=== PATIENT | female | born 1990 | race Caucasian/White ===

== ENCOUNTER 2019-06-07 14:34 | Emergency (ER) | payer SELFPAY ==
[~2019-06-07] VITALS: Ht 162.6 cm; Wt 100.0 kg
[2019-06-07 14:37] VITALS: BP 135/86; Ht 162.6 cm; Wt 100.0 kg
== END 2019-06-07 14:54 | disposition left against medical advice (07) ==
LOC: D.ER 14:34
DX: R05 Cough (principal)